=== PATIENT | female | born 1980 ===

== ENCOUNTER → 2024-11-15 | Outpatient (CLI) | payer OTHER | END | disposition home or self-care (01) | LOC: Rad HDHVI 13:40 | PROVIDERS: ATTEND Internal Medicine Cardiovascular Disease | DX: I51.7 Cardiomegaly (principal); R07.89 Other chest pain | CPT/HCPCS: 93306 ==

== ENCOUNTER → 2024-11-26 | Outpatient (CLI) | payer OTHER ==
[~2024-11-26] VITALS: Ht 160 cm; Wt 75.7 kg
--- NOTE | 2024-12-11 09:01 | DVHSR ---
APPROVED REPORT Exam: Nuclear Stress Test Indication: Chest pain Ht: 5 ft 3 in Wt: 167 lbs BSA: 1.79 m2 HR: 73 bpm BP: 110/64 mmHg BMI: 29.57 Rhythm: NSR Medical History Medical History: Chest pain, Dyspnea, HTN Medications: Losartan, Potassium, Hctz, Buspar, Aspirin, Ibuprofen Allergies: No known drug allergies Cardiac Risk Factors: Family Hx of CAD Stress Test Details Stress Test: Exercise stress testing was performed using a Luis Enrique protocol. HR Resting HR: 73 bpmMax Heart Rate (APMHR): 176.748929 bpm Max HR Achieved: 157 bpmTarget HR (85% APMHR): 149.338300 bpm % of APMHR: 89.20 Recovery HR: 93 bpm HR response to stress: Normal HR response to stress BP Resting BP: 110/64 mmHg Max BP: 157/72 mmHg Recovery BP: 124/70 mmHg BP response to stress: Normal blood pressure response to stress. ECG Resting ECG: Sinus Rhythm Stress ECG: Sinus Tachycardia Arrhythmia: None Recovery ECG: Sinus Rhythm Clinical Reason for Termination: Target HR achieved Stress Symptoms: Chest tightness, Mild chest pain Exercise duration: 7 min 29 sec Exercise capacity: 10.1 METs Symptoms improved during recovery period. Stress ECG Conclusion NON ISCHEMIC ECG EF >55% NON ISCHEMIC CARDIOLITE PERFUSION SCAN LESS THAN 10% LIKELIHODD FOR STRESS INDUCED ISCHEMIA NM EXAM: Myocardial Perfusion REST/STRESS Imaging Protocol: Rest Tc-99m/Stress Tc-99m 1 day Resting Data Rest SPECT myocardial perfusion imaging was performed in supine position 30 minutes following the int ravenous injection of 10.89 mCi of Tc-99m Sestamibi. Time of rest injection: 939 Date: 11/26/2024 Time of rest imagin Date: 11/26/2024 Administration Route: IV Administration Site: Right Arm Exercise Stress At peak stress, the patient was injected intravenously with 31.4 mCi of Tc-99m Sestamibi. Time of stress injection: 111 Date: 11/26/2024 Time of stress imagin Date: 11/26/2024 Administration Route: IV Administration Site: Right Arm Heart Rate at time of stress injection: 157 bpm. Patient continued to exercise for 1 minute(s). Gated Stress SPECT was performed 15 minutes after stress injection. The images were gated to evaluate regional wall motion and calculate left ventricular ejection fracti on. Comments Cardiolite injection at 6 minutes, 25 seconds into test. Study Data Post stress, the left ventricular ejection was >55%.. Nuclear Conclusion NON ISCHEMIC ECG EF >55% NON ISCHEMIC CARDIOLITE PERFUSION SCAN LESS THAN 10% LIKELIHODD FOR STRESS INDUCED ISCHEMIA
== END | disposition home or self-care (01) ==
LOC: Rad HDHVI 09:32
PROVIDERS: ATTEND Internal Medicine Cardiovascular Disease
DX: R00.0 Tachycardia, unspecified (principal); I10 Essential (primary) hypertension; R07.89 Other chest pain; R06.02 Shortness of breath; Z82.49 Family history of ischemic heart disease and other diseases of the circulatory system; Z79.82 Long term (current) use of aspirin
CPT/HCPCS: 78452; 93017; A9500; 96374